=== PATIENT | male | born 2000 | race Caucasian/White ===

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

== ENCOUNTER 2020-02-10 17:24 | Emergency (ER) | payer OTHER, SELFPAY ==
[2020-02-10 17:25] VITALS: BP 144/85; PULSE 79; RESP 16; TEMP 36.2; O2SAT 99; BMI 18.4
[2020-02-10 18:50] LABS: Anion Gap 5 (5-15); BUN 10 mg/dL (7-18); Calcium,Total 9.4 mg/dL (8.5-10.1); Chloride 106 mmol/L (98-107); Creatinine, Serum 0.91 mg/dL (0.70-1.30); EST Glomerular Filtration Rate 112 mL/min (>60); Est Glom Filt Rate - Afr Amer 136 mL/min (>60); Estimated Creatinine Clearance 116.31 ml/min; Glucose 92 mg/dL (74-106); Potassium 3.7 mmol/L (3.5-5.1); Sodium Level 141 mmol/L (136-145)
[2020-02-10 19:07] LABS: Absolute Lymphocyte Count 1.37 X10^3/uL (0.83-4.51); Absolute Neutrophil Count 6.3 X10^3/uL (2.0-7.7); Basophil# 0.04 X10^3/uL; Basophil% 0.5 % (0-1); Eosinophil# 0.03 X10^3/uL; Eosinophils% 0.4 % (0-5); Hematocrit 48.9 % (40-54); Hemoglobin 16.7 g/dL (13.0-16.5); Lymphocyte # 1.37 X10^3/ul (4.0); Lymphocyte % 16.7 % (19-41); Mean Corp Hgb Conc 34.2 g/dL (32-36); Mean Corpuscular Hgb 29.7 pg (27.0-32.0); Mean Corpuscular Volume 86.9 fL (80-94); Mean Platelet Vol. 10.8 fl (6.2-12.0); Monocyte# 0.42 X10^3/uL; Monocyte% 5.1 % (0-10); NRBC Flagged by Analyzer 0 % (0-5); Neutrophil % 76.9 % (47-70); Platelet Count 218 K/mm3 (150-450); RBC Distribution Width CV 13.1 % (11.6-14.6); RBC Distribution Width SD 40.3 fl (35.1-43.9); Red Blood Count 5.63 M/mm3 (4.6-6.2); White Blood Count 8.2 K/mm3 (4.4-11.0)
--- NOTE | 2020-02-10 19:24 | ED.DCSUM_ITS ---
- ER Visit Summary Date of Service: 02/10/20 Chief Complaint: Concern about problems with sugar History of Present Illness: The patient is a 19 M with no primary care physician. He reports that if he eats too much sugar he feels unhealthy. States that usually happens in the morning or just before bed. States that at noon today he was not able to eat lunch. His hands and feet were tingling and his mouth was dry. He does admit that he has a history of anxiety. He has been on Vistaril in the past and does not have any now. Physical Examination: Vitals: Stable. Afebrile. General: Well-nourished and well-developed. Head: Normocephalic atraumatic. Neck: Supple, no lymphadenopathy. No JVD. Nontender. Cardiovascular: Regular rate and rhythm. No murmurs. Respiratory: No respiratory distress. Clear to auscultation bilaterally. Abdominal: Soft, nontender, nondistended, normal bowel sounds. No guarding, rebound, or peritoneal signs. Back: Nontender. Extremities: Nontender, no edema. Skin: Normal color, no rash. Neurologic: Alert and oriented ?3. Cranial nerves II through XII are intact. Normal strength and sensation. Psych: Normal affect. Test Results: Chem-7 is normal. Hemoglobin A1c is normal. CBC shows a hemoglobin of 16.7, segmented for 77, no signs of 17. Emergency Department Course and Treatment: Patient had an IV placed. Is given a liter normal saline. He is given dose of Vistaril p.o. He is resting more comfortably. Treatment Plan: Patient will be discharged with instructions to [facility] within 1 to 2 weeks for further evaluation. He will be discharged on Vistaril. Is also given the a information for the counseling center. Return to the emergency department for any worsening symptoms. Disposition: To home in improved and stable condition. Impression: 1. Anxiety. This note was generated with [employer] dictation software. It may contain incorrect words, spelling, and punctuation that were not noted in review of the chart prior to signing ED Disposition - Plan for ED Patient: Disposition: Home or Assisted Living Instructions: Understanding Generalized Anxiety Disorder (JACY) Prescriptions: hydrOXYzine pamoate capsule [Vistaril] 50 mg PO TID PRN PRN #30 cap PRN Reason: Anxiety Prescription Printed Referrals: Nan [facility] [NON-STAFF] - 1-2 Weeks Counseling,Center [GROUP OF PHYSICIANS] - As soon as possible
[2020-02-10 19:41] LABS: Hemoglobin A1c 4.9 % (3.8-5.6)
[2020-02-10] MEDS: hydrOXYzine PAM 25 MG Capsule 50 MG PO (19:41)
[2020-02-10] MEDS: 0.9% Normal Saline 1,000 ML 1000 ML IV (19:41)
[2020-02-10 20:30] VITALS: BP 127/82; PULSE 61; RESP 16; O2SAT 100
== END 2020-02-10 20:31 | disposition home or self-care (01) ==
LOC: ED 18:05
PROVIDERS: Emergency Provider Emergency Medicine
DX: F41.9 Anxiety disorder, unspecified (principal)
CPT/HCPCS: 80048; 83036; 85025; 96360; 99284; J7030; A4216

== ENCOUNTER 2020-03-08 10:19 | Emergency (ER) | payer SELFPAY ==
[2020-03-08 10:20] VITALS: BP 128/86; PULSE 92; RESP 16; TEMP 37.2; O2SAT 98; BMI 18.1
--- NOTE | 2020-03-08 11:04 | CM.ED ---
Social Work Consult: Mental Health Informant: Dr. Henao Chief Complaint: Patient presents to the ED with concerns for not eating the past 3-4 days due to Anxiety. Marital/Social History: Single Living Situation: Lives with father and brother. Support/Resources: Reports support from family. No active community services. Education/Employment: No concerns for comprehension or understanding. Is to start job at [employer] today at 4pm. History: None Mental Health Treatment/History: Anxiety. Reports to have been prescribed Paxil yesterday by Dr. Clemons with [facility]. Patient states to have taken first does of Paxil this morning. No history of inpatient psychiatric placements. Abuse Issues: None Substance Abuse/use: Denies Risk to Self/Others: Denies any suicidal/homicidal thoughts/plans/intents or history of. Mental Status Exam: A&Ox3 Appearance/General Behavior: Clean/Appropriate Mood/Affect: Appropriate Communication Pattern: Responds to questions. Thought Process: Appropriate. General Intellectual Functioning: Average Judgement: Good Assessment: Met with patient in room. Introduced self and social work supervisor role. Patient is agreeable to speaking with this social work supervisor. Patient states to have struggled with Anxiety since the age of 15. Patient states to have gone to a concert and it started from there. Patient denies any current stressors/triggers. Patient states main coping skill is listening to music. Patient states main concern is that patient has not been able to eat due to feeling Anxious. Patient denies any concern about weight but that Anxiety gives patient an upset stomach and then patient is unable to eat. Patient does present as thin, but not under weight. Patient denies any history of counseling services. This social work supervisor exploring options of counseling services for patient as this could assist patient in establishing coping skills. Patient is open to counseling appointment being set up. Patient does not currently have insurance. Patient agreeable to intake appointment with the [facility]. Patient states will obtain insurance through [employer] as patient is full-time. Active support and listening provided. Telephone call to Emiliana LEE. The scheduling team is in a meeting and will call this social work supervisor back to set up appointment. Updated Dr. Henao on above information. Jody Harley SHOCK ABSORBER INSTALLER, OMAR
[2020-03-08 11:20] VITALS: RESP 16
[2020-03-08 11:25] LABS: Mucous, Urine 0 SEEN /hpf (<or=2+); Red Blood Cells-Urine 0 SEEN /hpf (0-5); White Blood Cells 0 SEEN /hpf (0-5)
[2020-03-08 11:27] LABS: Color, Urine Straw (Yellow); Glucose, Dipstick Normal (Normal); Ketone-Dipstick Negative (Negative); Leukocyte Esterase-Dipstick Negative /ul (Negative); Nitrite-Dipstick Negative (Negative); Occult Blood-Urine Negative /ul (Negative); Protein-Dipstick Negative (Negative); Specific Gravity, Urine 1.005 (1.002-1.030); Urine Bilirubin Dipstick Negative (Negative); Urine Clarity Clear (Clear); Urine Urobilinogen Normal (Normal)
[2020-03-08] MEDS: 0.9% Normal Saline 1,000 ML 1000 ML IV (11:31)
[2020-03-08 11:33] LABS: Absolute Lymphocyte Count 0.96 X10^3/uL (0.83-4.51); Absolute Neutrophil Count 4.1 X10^3/uL (2.0-7.7); Basophil# 0.03 X10^3/uL; Basophil% 0.5 % (0-1); Eosinophil# 0.02 X10^3/uL; Eosinophils% 0.4 % (0-5); Hematocrit 51.2 % (40-54); Hemoglobin 17.4 g/dL (13.0-16.5); Lymphocyte # 0.96 X10^3/ul (4.0); Lymphocyte % 17.4 % (19-41); Mean Corpuscular Hgb 29.1 pg (27.0-32.0); Mean Corpuscular Volume 85.8 fL (80-94); Mean Platelet Vol. 9.9 fl (6.2-12.0); Monocyte# 0.46 X10^3/uL; Monocyte% 8.3 % (0-10); NRBC Flagged by Analyzer 0 % (0-5); Neutrophil # 4.05 X10^3/uL (2.7-7.7); Neutrophil % 73.2 % (47-70); Platelet Count 229 K/mm3 (150-450); RBC Distribution Width CV 12.7 % (11.6-14.6); Red Blood Count 5.97 M/mm3 (4.6-6.2); White Blood Count 5.5 K/mm3 (4.4-11.0)
[2020-03-08 11:42] LABS: Bacteria RARE /hpf (None Seen); Squamous Epithelial Cells - UA 0-5 SEEN /hpf (0-5)
[2020-03-08 11:46] LABS: ALB/GLOB Ratio 1.7 RATIO (0.9-2.4); AST(SGOT) 9 U/L (15-37); Alanine Aminotransfer ALT/SGPT 18 U/L (16-61); Albumin, Serum 4.8 g/dL (3.2-5.0); Alkaline Phosphatase 87 U/L (45-117); Anion Gap 7 (5-15); BUN 7 mg/dL (7-18); Calcium,Total 9.6 mg/dL (8.5-10.1); Chloride 101 mmol/L (98-107); Creatinine, Serum 0.99 mg/dL (0.70-1.30); EST Glomerular Filtration Rate 102 mL/min (>60); Est Glom Filt Rate - Afr Amer 123 mL/min (>60); Estimated Creatinine Clearance 104.62 ml/min; Globulin 2.8 g/dL (2.2-4.2); Glucose 107 mg/dL (74-106); Protein, Total 7.6 g/dL (6.4-8.2); Sodium Level 138 mmol/L (136-145)
[2020-03-08 12:00] VITALS: RESP 16
[2020-03-08 13:00] VITALS: RESP 16
--- NOTE | 2020-03-08 13:25 | CM.ED ---
Social Work Telephone call back to [facility] as no return call has been received, Peace answered. Peace states that since patient has no active insurance that patient would have a private pay cost of approx. $150 a visit. Collaborating with patient on private pay cost. Patient is wanting to wait until patient has insurance to start counseling. This social media director reeducated patient on crisis hotline if needed as well. Patient also has list of local counseling services in the area and aware of how to make self referral. PLAN: Discharge to home. Jody CONNOR, OMAR
[2020-03-08 13:34] VITALS: BP 125/86; PULSE 82; RESP 18; O2SAT 98
--- NOTE | 2020-03-09 14:00 | CM.ED ---
SOCIAL WORK Follow up call made to patient. Patient reports is doing OK. Patient reports, I get a little nauseated before work, but work went well and I was able to eat at work. Support and encouragement provided. Patient denies any further needs. Sury Kim, ROVING FRAME TENDER, PARACHUTE MENDER
--- NOTE | 2020-03-18 11:16 | ED.VIS.GEN ---
History of Present Illness Chief Complaint: Mental Health Informant: Patient Narrative: 19-year-old male with past medical history of anxiety presents with concern for anxiety. States that he was recently placed on an antianxiety medication and is concerned because he has not been eating or drinking well over the past 4 days. Feels like he is losing weight. Denies any vomiting but states he does get nauseous whenever he looks at food. Dates that he was placed on this medication by his primary care provider. Denies any drug abuse. Denies any suicidal ideation or homicidal ideation. Past Medical History - Allergies and Home Meds Allergies/Adverse Reactions: Allergies No Known Allergies Allergy (Verified 03/08/20 10:24) Primary Care Physician: Melvin Key MD [Primary Care Provider] - 2 Days Prior records reviewed: Yes Past Medical History: - - anxiety Surgical History: no surgical history Lives: With Family Smoking Status: Never smoker Alcohol: None Drugs: None Review of Systems General: Denies: Chills, Fever, Sweats Eyes: Denies: Visual changes - bilaterally, Diplopia ENT: Denies: Rhinorrhea, Sore throat Cardiovascular: Denies: Chest pain, Palpitations Respiratory: Denies: Dyspnea, Cough, Dyspnea on exertion Gastrointestinal: Reports: Nausea. Denies: Abdominal pain, Vomiting, Diarrhea, Melena, Hematochezia Genitourinary: Denies: Dysuria, Hematuria, Frequency Musculoskeletal: Denies: Back pain, Extremity Pain Skin: Denies: Rash, Wounds Neurological: Denies: Headache, Weakness, Numbness Psych: Reports: Anxiety Physical Exam Inital Vital Signs reviewed: Yes General: Well nourished, Well developed, No Acute Distress Head: Normocephalic, Atraumatic Eyes: Perrl, EOMI ENT: Moist mucous membranes, No rhinorrhea Neck: Supple, Nontender Cardiovascular: Regular rate, Regular rhythm, No murmurs Respiratory: No distress, CTA bilaterally, Chest nontender Abdomen: Soft, Nontender, Nondistended, Normal bowel sounds Back: Nontender, Normal Inspection Extremities: Nontender, No edema Skin: Normal color, No rash Neurological: Alert, Oriented x3, Cranial nerves II-XII grossly intact, Normal Strength, Normal Sensation Psychological: Normal affect, Normal Mood, - - No suicidal or homicidal ideation. Diagnostic/Tx/Re-eval - Medical Decision Making Patient appears well nontoxic. Vital signs within normal limits. Lab work within normal limits. Social work evaluated patient who agrees that he also is not suicidal or homicidal. They did set him up with outpatient counseling. Patient will be given antiemetic. Asked to follow-up with primary care about medication. Likely just side effect of medication which will resolve over time. Patient asked to return for any suicidal or homicidal ideation. He was agreeable and discharged home in stable condition. Impression: 1. Anxiety 2. Medication side effect 3. Nausea ED Disposition - Plan for ED Patient: Disposition: Home or Assisted Living Diagnosis: Anxiety Instructions: Understanding Generalized Anxiety Disorder (JACY) Referrals: Melvin Key MD [Primary Care Provider] - 2 Days
== END 2020-03-08 13:34 | disposition home or self-care (01) ==
PROVIDERS: Emergency Provider Emergency Medicine; PCP Family Medicine
DX: F41.9 Anxiety disorder, unspecified (principal); R11.0 Nausea; T50.995A Adverse effect of other drugs, medicaments and biological substances, initial encounter
CPT/HCPCS: 80053; 81001; 85025; 96360; 99284; J7030

== ENCOUNTER 2020-10-28 21:15 | Emergency (ER) | payer OTHER, SELFPAY ==
[2020-10-28 21:16] VITALS: BP 153/81; PULSE 88; RESP 19; TEMP 36.4; O2SAT 99; BMI 17.8
--- NOTE | 2020-10-28 21:24 | CT_ITS ---
HISTORY: left groin pain TECHNIQUE: Helically acquired images were obtained of the abdomen and pelvis following the intravenous administration of ml of 100mL Isovue-370 Iodinated contrast. 2D reformats. No oral contrast was administered. A radiation dose optimization technique was used for this scan. COMPARISON: None FINDINGS: # of images incl. paperwork: 376 LUNG BASES: Clear. CT abdomen: Bones are unremarkable. The gallbladder remains. Liver, pancreas, and adrenal glands, are normal. The spleen is enlarged at 16 cm. The stomach is distended with ingested food gas and liquid. Prominent bilateral extrarenal pelves with slight prominence to the right ureter but without obstruction identified. The aorta is normal. CT pelvis: No ascites is present. The appendix is normal. Series 2 image 79. The prostate gland is not enlarged. The bladder is normal. Bowel-gas pattern is normal. CT/Abdomen/Pelvis W IV Cont ONLY IMPRESSION: Splenomegaly of unknown etiology. Individualized dose optimization techniques were used for this CT. at 2209 Reported and signed by: Gabriel Alicia MD Electronically Signed: Gabriel Alicia MD at 22:08 EST Tel , Service support ,
--- NOTE | 2020-10-28 21:31 | ED.DCSUM_ITS ---
- ER Visit Summary Date of Service: 10/28/20 Chief Complaint: Left groin pain History of Present Illness: The patient is a 19 M presenting with left groin pain. Patient states he was at work and lifted a box. He had sudden onset of pain in his left groin. This occurred just prior to arrival. No other co mplaints. Physical Examination: Vitals are stable. Patient is afebrile. Alert no acute distress. HEENT exam is unremarkable. Neck is supple. Lungs are clear and equal bilaterally. Heart is regular rate and rhythm. Abdomen is soft nontender nondistended. Left inguinal tenderness : No testicular tenderness, normal lie Extremities are unremarkable. Skin is warm and dry. Remainder of exam is unremarkable. Emergency Department Course and Treatment: Patient was given morphine, Zofran IV. CT abdomen/pelvis shows splenomegaly of unknown etiology. On re-evaluation, patient is resting comfortably. He is advised CT findings. Advised to follow-up with Dr. Astorga on-call for no doctor. Advised return to ED for worsening complaints. Disposition: Discharge home Impression: Groin strain This note was generated with [email or web address] dictation software. It may contain incorrect words, spelling, and punctuation that were not noted in review of the chart prior to signing ED Disposition - Plan for ED Patient: Instructions: ED Groin Strain Prescriptions: cycloBENZAPRine HCl [Flexeril] 10 mg PO TID PRN #20 tab PRN Reason: Muscle Spasm Prescription Printed Naproxen [Naprosyn] 500 mg PO BID PRN #20 tab Prescription Printed Referrals: Jero Astorga [[facility]] -
[2020-10-28] MEDS: Ondansetron 4 MG/2 ML Vial IV (21:32)
[2020-10-28] MEDS: Morphine 4 MG/ML Syringe IV (21:33)
--- NOTE | 2020-10-28 22:21 | ED.DEP ---
ED Disposition - Plan for ED Patient: Instructions: ED Groin Strain Prescriptions: cycloBENZAPRine HCl [Flexeril] 10 mg PO TID PRN #20 tab PRN Reason: Muscle Spasm Prescription Printed Naproxen [Naprosyn] 500 mg PO BID PRN #20 tab Prescription Printed Referrals: Jero Astorga [[facility]] -
[2020-10-28 22:35] VITALS: BP 129/85; PULSE 75; RESP 15; O2SAT 100
== END 2020-10-28 22:37 | disposition home or self-care (01) ==
PROVIDERS: Emergency Provider Emergency Medicine; PCP Family Medicine
DX: S39.011A Strain of muscle, fascia and tendon of abdomen, initial encounter (principal); X50.0XXA Overexertion from strenuous movement or load, initial encounter; Y93.89 Activity, other specified; Y92.89 Other specified places as the place of occurrence of the external cause; Y99.0 Civilian activity done for income or pay
CPT/HCPCS: 74177; 96374; 96375; 99283; Q9967; A4216; J2405

== ENCOUNTER 2022-05-11 18:29 | Emergency (ER) | payer BC, SELFPAY ==
[2022-05-11 18:31] VITALS: BP 124/84; PULSE 87; RESP 16; TEMP 36.7; O2SAT 99; BMI 17.6
--- NOTE | 2022-05-11 18:43 | CT_ITS ---
STUDY: CT ABDOMEN AND PELVIS WITHOUT CONTRAST REASON FOR EXAM: Male, 21 years old. Pain RADIATION DOSAGE (If Supplied By Facility): CTDIvol = ( 6.04 ) mGy, DLP = ( 303.53 ) mGycm TECHNIQUE: Transaxial images were obtained from the dome of the diaphragm to the symphysis pubis without oral contrast, and without intravenous contrast. Sagittal and coronal images were reconstructed. Individualized dose optimization techniques were used for this CT. COMPARISON: None. FINDINGS: The visualized lung bases are unremarkable. The visualized portions of the heart are within normal limits. Normal liver. Normal gallbladder and extrahepatic biliary system. There is moderate splenomegaly. Normal pancreas. Normal bilateral adrenal glands. Normal right kidney. Normal left kidney. Normal visualized stomach. Normal small intestine. Normal colon. The appendix is visualized and appears normal. Normal abdominal aorta. Normal inferior vena cava. Normal retroperitoneum. Normal urinary bladder. Normal abdominal wall. Normal osseous structures. CT/Abdomen/Pelvis without Cont IMPRESSION: Moderate splenomegaly. Electronically Signed: Gregory Crowell MD at 19:36 EDT ,
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
[2022-05-11 19:45] VITALS: RESP 18
== END 2022-05-11 19:53 | disposition home or self-care (01) ==
PROVIDERS: Emergency Provider Emergency Medicine; PCP Nurse Practitioner Family; Visit Provider Emergency Medicine
DX: R10.9 Unspecified abdominal pain (principal); R16.1 Splenomegaly, not elsewhere classified; R07.81 Pleurodynia
CPT/HCPCS: 74176; 99282

== ENCOUNTER 2024-05-19 23:17 | Emergency (ER) | payer BC, SELFPAY ==
[2024-05-19 23:17] VITALS: BP 122/70; PULSE 99; RESP 18; TEMP 36.1; O2SAT 100; BMI 18.2
--- NOTE | 2024-05-19 23:20 | ED.RN ---
Attempted to call supervisor final for drug screening, no answer @ this time.
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
[2024-05-20] MEDS: oxyCODONE 5 MG Tablet PO (00:09)
== END 2024-05-20 00:22 | disposition home or self-care (01) ==
PROVIDERS: Emergency Provider Emergency Medicine; PCP Nurse Practitioner Family; Visit Provider Emergency Medicine
DX: N50.811 Right testicular pain (principal); F41.9 Anxiety disorder, unspecified; F32.A Depression, unspecified; I80.8 Phlebitis and thrombophlebitis of other sites
CPT/HCPCS: 99282